=== PATIENT | male | born 1950 | race Caucasian/White ===

== ENCOUNTER 2021-02-27 22:22 | Emergency (ER) | payer BC ==
[2021-02-27 22:33] VITALS: BP 153/79; PULSE 61; TEMP 98.7; BMI 23.1
== END 2021-02-28 00:50 | disposition home or self-care (01) ==
LOC: JER 22:22
DX: T54.3X1A Toxic effect of corrosive alkalis and alkali-like substances, accidental (unintentional), initial encounter (principal)
CPT/HCPCS: 99283-25